=== PATIENT | female | born 1950 | race Caucasian/White ===

== ENCOUNTER 2021-03-13 12:35 | Outpatient (CLI) | payer MEDICARE, BC | END 2021-03-13 12:36 | disposition home or self-care (01) | LOC: CSHCT 12:35 | PROVIDERS: ATTEND Family Medicine | DX: R31.21 Asymptomatic microscopic hematuria (principal); N20.0 Calculus of kidney; R93.41 Abnormal radiologic findings on diagnostic imaging of renal pelvis, ureter, or bladder | CPT/HCPCS: 74176 ==

== ENCOUNTER 2024-11-28 10:28 | Outpatient (CLI) | payer BC, MEDICARE | END 2024-11-28 10:29 | disposition home or self-care (01) | LOC: CSHULT 10:28 | PROVIDERS: ATTEND Specialist | DX: E04.1 Nontoxic single thyroid nodule (principal) | CPT/HCPCS: 76536 ==